=== PATIENT | male | born 1955 | race Caucasian/White ===

== ENCOUNTER 2020-01-26 11:13 | Observation (INO) ==
[2020-01-26] MEDS ORDERED: ASPIRIN 325 MG TABLET PO STA (11:53)
[2020-01-26] MEDS ORDERED: ENOXAPARIN 100 MG/ML SYRINGE SUBCUT STA (11:53)
[2020-01-26] MEDS ORDERED: NITROGLYCERIN 2% OINT 1 INCH/GM PACK TOP STA (11:53)
[2020-01-26] MEDS ORDERED: NITROGLYCERIN SL 0.4 MG TABLET SL ONE (12:07)
[2020-01-26] MEDS ORDERED: MORPHINE 4 MG/1 ML VIAL ONE (12:08)
[2020-01-26] MEDS ORDERED: ONDANSETRON 4 MG/2 ML VIAL ONE (12:08)
[2020-01-26] MEDS ORDERED: MORPHINE 4 MG/1 ML VIAL IV STA (12:25)
[2020-01-26] MEDS ORDERED: ONDANSETRON 4 MG/2 ML VIAL IV STA (12:26)
[2020-01-26] MEDS ORDERED: NITROGLYCERIN SL 0.4 MG TABLET SL STA (12:26)
[2020-01-26 12:39] LABS: PT Patient Result 10.9 SECS (9.8-11.9); Partial Thromboplastin Time 27.5 SECS (23.9-33.8)
[2020-01-26 12:52] LABS: Bilirubin,Total 0.5 MG/DL (0.2-1.0); Calcium 9.2 MG/DL (8.5-10.1); Osmolality,Calculated 277.1 MOS/KG (273-304); Total Protein 7.6 G/DL (6.4-8.3)
[2020-01-26 12:53] LABS: Basophils # 0.1 10*3/uL (0.0-0.2); Basophils % 0.7 % (0.0-0.8); Eosinophils # 0.4 10*3/uL (0.0-0.87); Eosinophils % 5.8 % (0.00-10.9); Hematocrit 38.1 VOL% (42.0-52.0); Hemoglobin 12.8 GM/DL (14.0-18.0); Immature Granulocytes % 0.3 %; Immature Granulocytes Absolute 0.02 #; Lymphocytes # 3.2 10*3/uL (1.4-4.0); Mean Corpuscular HGB Conc 33.6 GM/DL (32-36); Mean Corpuscular Volume 92.7 FL (87-102); Mean Platelet Volume 13.6 FL (9.6-12.0); Monocytes % 7.6 % (1.7-12.7); Neutrophils % 42.6 % (38.7-73.9); Red Blood Count 4.11 MC/CUMM (3.8-5.5); Red Cell Distribution Width 12.7 % (9.3-17.3); White Blood Count 7.4 T/CUMM (4-12)
[2020-01-26 12:57] LABS: Platelet Count 96 T/CUMM (130-400)
[2020-01-26 13:35] LABS: Platelet Estimate Decreased
[2020-01-26] MEDS ORDERED: NITROGLYCERIN SL 0.4 MG TABLET SL PRN (14:34)
[2020-01-26] MEDS ORDERED: GLUCAGON 1 MG VIAL IM PRN (15:02)
[2020-01-26] MEDS ORDERED: DEXTROSE 50% 25 GM/50 ML VIAL IV PRN (15:02)
[2020-01-26] MEDS ORDERED: SODIUM CHLORIDE 0.9% 500 ML IV STA (15:23)
[2020-01-26] MEDS: carvediloL 3.125 MG TABLET PO SCH ×2 (15:27→20:58)
[2020-01-26] MEDS: INSULIN REGULAR 100 UNIT/ML SUBCUT SCH ×3 (16:36→21:38)
[2020-01-26 16:40] LABS: % Iron Saturation 29.2 % (18-50)
[2020-01-26 17:23] LABS: Basophils % 0.5 % (0.0-0.8); Eosinophils # 0.3 10*3/uL (0.0-0.87); Eosinophils % 4.2 % (0.00-10.9); Hematocrit 39.4 VOL% (42.0-52.0); Hemoglobin 12.9 GM/DL (14.0-18.0); Immature Granulocytes % 0.1 %; Immature Granulocytes Absolute 0.01 #; Lymphocytes # 2.3 10*3/uL (1.4-4.0); Lymphocytes % 30.5 % (21.2-54.2); Mean Corpuscular HGB Conc 32.7 GM/DL (32-36); Mean Corpuscular Volume 93.8 FL (87-102); Mean Platelet Volume 13.8 FL (9.6-12.0); Monocytes % 5.8 % (1.7-12.7); Neutrophils % 58.9 % (38.7-73.9); Platelet Count 86 T/CUMM (130-400); Red Cell Distribution Width 12.9 % (9.3-17.3); White Blood Count 7.6 T/CUMM (4-12)
[2020-01-26 18:02] LABS: Platelet Estimate Decreased
[2020-01-27] MEDS: INSULIN REGULAR 100 UNIT/ML SUBCUT SCH ×5 (01:22→13:16)
[2020-01-27 05:10] LABS: Basophils % 0.6 % (0.0-0.8); Eosinophils # 0.4 10*3/uL (0.0-0.87); Eosinophils % 6.4 % (0.00-10.9); Hematocrit 39.3 VOL% (42.0-52.0); Hemoglobin 12.8 GM/DL (14.0-18.0); Immature Granulocytes % 0.2 %; Immature Granulocytes Absolute 0.01 #; Lymphocytes # 2.4 10*3/uL (1.4-4.0); Lymphocytes % 37.8 % (21.2-54.2); Mean Corpuscular HGB Conc 32.6 GM/DL (32-36); Mean Corpuscular Volume 92.9 FL (87-102); Mean Platelet Volume 13.4 FL (9.6-12.0); Monocytes % 7.8 % (1.7-12.7); Neutrophils % 47.2 % (38.7-73.9); Platelet Count 75 T/CUMM (130-400); Red Blood Count 4.23 MC/CUMM (3.8-5.5); White Blood Count 6.4 T/CUMM (4-12)
[2020-01-27 05:33] LABS: Eosinophils 4 % (0-10); Lymphocytes 37 % (20-55); Segmented Neutrophils 52 % (50-85); Total Cells Counted 100
[2020-01-27 05:34] LABS: Atypical Lymphocytes Few; Hypochromasia 1+; Platelet Estimate Decreased
[2020-01-27] MEDS ORDERED: LOSARTAN 50 MG TABLET PO SCH (09:00)
[2020-01-27] MEDS ORDERED: ASPIRIN EC 81 MG TABLET PO SCH (09:00)
[2020-01-27] MEDS ORDERED: ROSUVASTATIN 20 MG TABLET PO SCH (09:00)
[2020-01-27] MEDS: carvediloL 3.125 MG TABLET PO SCH (09:31)
[2020-01-27] MEDS ORDERED: GLUCAGON 1 MG VIAL IM PRN (10:38)
[2020-01-27] MEDS ORDERED: DEXTROSE 50% 25 GM/50 ML VIAL IV PRN (10:38)
[2020-01-27] MEDS ORDERED: DEXTROSE 10% 250 ML BAG IV PRN (10:47)
[2020-01-27 13:17] VITALS: BP 128/72
[2020-01-27 14:05] LABS: Apearance,Urine Slightly Hazy (Clear); Bilirubin,Urine Negative (Negative); Blood, Urine Negative (Negative); Glucose,Urine (UA) Negative (Negative); Ketones,Urine Negative (Negative); Mucus,Urine Few /LPF (Occasional); Nitrite,Urine Negative (Negative); Protein,Urine Negative; RBC,Urine 2 /HPF (0-4); Squamous Epithelial Cell,Urine Occasional /HPF (0-10); Urine Color Yellow (Yellow); Urine Specific Gravity 1.015 (1.001-1.035); WBC,Urine 2 /HPF (0-6)
[2020-01-27 14:54] LABS: Calcium 9.1 MG/DL (8.5-10.1); Osmolality,Calculated 276.8 MOS/KG (273-304)
[2020-01-27 20:19] LABS: Risk Ratio 4.83
[2020-01-28] MEDS ORDERED: LOSARTAN 50 MG TABLET PO SCH (09:00)
== END 2020-01-27 13:18 | disposition home or self-care (01) ==
LOC: N.ED 11:13 → N.EDINP 11:13 → N.2E 17:58
PROVIDERS: ADMIT Internal Medicine Cardiovascular Disease; ATTEND Internal Medicine Cardiovascular Disease

== ENCOUNTER 2022-10-20 12:36 | Observation (INO) ==
[2022-10-20] MEDS ORDERED: NITROGLYCERIN SL 0.4 MG TABLET SL PRN ×2 (13:12→15:26)
[2022-10-20] MEDS ORDERED: ASPIRIN 325 MG TABLET PO STA (13:12)
[2022-10-20] MEDS ORDERED: ENOXAPARIN 100 MG/ML SYRINGE SUBCUT STA (13:12)
[2022-10-20 13:38] LABS: Basophils # 0.1 10*3/uL (0.0-0.2); Basophils % 0.7 % (0.0-0.8); Eosinophils # 0.1 10*3/uL (0.0-0.87); Eosinophils % 1.3 % (0.00-10.9); Hematocrit 44.2 VOL% (42.0-52.0); Hemoglobin 14.9 GM/DL (14.0-18.0); Immature Granulocytes % 0.9 %; Immature Granulocytes Absolute 0.06 #; Lymphocytes # 1.5 10*3/uL (1.4-4.0); Mean Corpuscular HGB Conc 33.7 GM/DL (32-36); Mean Corpuscular Volume 94.2 FL (87-102); Monocytes # 0.4 10*3/uL (0.11-0.8); Monocytes % 5.3 % (1.7-12.7); Neutrophils % 70.8 % (38.7-73.9); Platelet Count 77 T/CUMM (130-400); Red Blood Count 4.69 MC/CUMM (3.8-5.5); Red Cell Distribution Width 13.2 % (9.3-17.3)
[2022-10-20 14:01] LABS: Albumin 4.3 G/DL (3.4-5.0); Bilirubin,Total 0.4 MG/DL (0.20-1.00); Calcium 9.6 MG/DL (8.5-10.1); Osmolality,Calculated 285.7 MOS/KG (273-304); Potassium 4.4 MMOL/L (3.5-5.1); Total Protein 7.7 G/DL (6.4-8.2)
[2022-10-20] MEDS ORDERED: hydrALAZINE 20 MG/1 ML VIAL IV PRN (15:23)
[2022-10-20] MEDS ORDERED: ONDANSETRON 4 MG/2 ML VIAL IV PRN (15:23)
[2022-10-20] MEDS ORDERED: ACETAMINOPHEN 325 MG TABLET PO PRN (15:23)
[2022-10-20] MEDS ORDERED: DEXTROSE 10% 250 ML BAG IV PRN (15:23)
[2022-10-20] MEDS ORDERED: DOCUSATE SODIUM 100 MG CAPSULE PO PRN (15:23)
[2022-10-20] MEDS ORDERED: GLUCAGON 1 MG VIAL IM PRN (15:23)
[2022-10-20] MEDS ORDERED: MORPHINE 2 MG/1 ML SYRINGE IV PRN (15:23)
[2022-10-20 17:40] LABS: Urine Appearance Clear (Clear); Urine Color Yellow (Yellow); Urine Specific Gravity 1.015 (1.001-1.035)
[2022-10-20 17:41] LABS: Bilirubin,Urine Negative (Negative); Blood, Urine Negative (Negative); Glucose,Urine (UA) 500 mg/dL (Negative); Ketones,Urine Negative (Negative); Nitrite,Urine Negative (Negative); Protein,Urine Negative (Negative); Urine Urobilinogen 0.2 eU/dL (<2.0)
[2022-10-20 17:45] LABS: Bacteria,Urine Occasional /HPF (Few); RBC,Urine 1 /HPF (0-4); Squamous Epithelial Cell,Urine Occasional /HPF (0-10)
[2022-10-20] MEDS: INSULIN LISPRO 100 UNIT/ML SUBCUT SCH (19:30)
[2022-10-21 04:36] LABS: Basophils # 0.1 10*3/uL (0.0-0.2); Basophils % 0.8 % (0.0-0.8); Eosinophils # 0.3 10*3/uL (0.0-0.87); Eosinophils % 4.1 % (0.00-10.9); Hematocrit 40.2 VOL% (42.0-52.0); Hemoglobin 13.7 GM/DL (14.0-18.0); Immature Granulocytes % 0.3 %; Immature Granulocytes Absolute 0.02 #; Lymphocytes % 40.1 % (21.2-54.2); Mean Corpuscular HGB Conc 34.1 GM/DL (32-36); Mean Corpuscular Volume 95.3 FL (87-102); Monocytes # 0.6 10*3/uL (0.11-0.8); Monocytes % 8.3 % (1.7-12.7); Neutrophils % 46.4 % (38.7-73.9); Red Blood Count 4.22 MC/CUMM (3.8-5.5); Red Cell Distribution Width 13.2 % (9.3-17.3); White Blood Count 7.48 T/CUMM (4-12)
[2022-10-21 04:37] LABS: Platelet Count 77 T/CUMM (130-400)
[2022-10-21 05:12] LABS: Calcium 8.7 MG/DL (8.5-10.1); Osmolality,Calculated 288.3 MOS/KG (273-304); Potassium 3.6 MMOL/L (3.5-5.1); Risk Ratio 3.33; Thyroid Stimulating Hormone 1.38 uIU/ml (0.358-3.74); VLDL Cholesterol 29.2 MG/DL
[2022-10-21 05:15] LABS: Platelet Estimate Decreased
[2022-10-21] MEDS ORDERED: ENOXAPARIN 40 MG/0.4 ML SYRINGE SUBCUT SCH ×2 (07:00→09:00)
[2022-10-21 08:28] VITALS: BP 147/89
[2022-10-21] MEDS ORDERED: ROSUVASTATIN 20 MG TABLET PO SCH (09:00)
[2022-10-21] MEDS ORDERED: EZETIMIBE 10 MG TABLET PO SCH (09:00)
[2022-10-21] MEDS ORDERED: PANTOPRAZOLE 40 MG TABLET PO SCH (09:00)
[2022-10-21] MEDS ORDERED: metFORMIN 500 MG TABLET PO SCH (09:00)
[2022-10-21] MEDS ORDERED: lisinopriL 10 MG TABLET PO SCH (09:00)
[2022-10-21] MEDS ORDERED: ASPIRIN EC 81 MG TABLET PO SCH (09:00)
[2022-10-21] MEDS: INSULIN LISPRO 100 UNIT/ML SUBCUT SCH (09:46)
== END 2022-10-21 12:07 | disposition home or self-care (01) ==
LOC: N.EDINP 12:36 → N.ED 12:36 → N.TELEN 18:17
PROVIDERS: ADMIT Family Medicine; ATTEND Family Medicine